=== PATIENT | male | born 1995 | race Caucasian/White ===

== ENCOUNTER 2020-06-03 11:20 | Outpatient (REF) | payer BC, SELFPAY ==
[2020-06-03 12:20] LABS: MANUAL DIFF FLAG NO
[2020-06-03 12:24] LABS: Basophils Percent Auto 0.7 % (0-2); Eosinophils Absolute Auto 0.3 X10*3/uL (0.0-0.4); Eosinophils Percent Auto 4.1 % (0-4); Hematocrit 44.8 % (42-52); Hemoglobin 15.5 g/dl (14.0-18.0); Imm Gran Abs Auto 0.02 X10*3/uL (0.00-0.03); Imm Gran Pct Auto 0.3 % (0.0-0.4); Lymphocytes Absolute Auto 1.7 X10*3/uL (1.2-4.9); Lymphocytes Percent Auto 27.6 % (20-40); Mean Corpuscular HGB Conc 34.6 g/dl (31.0-36.0); Mean Corpuscular Hemoglobin 29.1 pg (27.0-33.0); Mean Corpuscular Volume 84.1 fL (80-98); Mean Platelet Volume 11.5 fL (9.4-12.4); Monocytes Absolute Auto 0.7 X10*3/uL (0.1-1.2); Monocytes Percent Auto 11.2 % (2-11); Neutrophils Absolute Auto 3.4 X10*3/uL (2.0-8.3); Neutrophils Percent Auto 56.1 % (45-73); Platelet Count 221 X10*3/uL (160-400); Red Blood Count 5.33 X10*6/uL (4.60-5.80); Red Cell Distribution Width 13.2 % (11.0-16.0); White Blood Count 6.1 X10*3/uL (4.8-10.8)
[2020-06-03 13:09] LABS: Thyroid Stimulating Hormone 0.72 uIU/mL (0.32-4.0)
[2020-06-04 13:11] LABS: Transglutaminase IgA 1 U/mL
[2020-06-05 22:47] LABS: Gliadin Deamidated IgA Ab 2 Units; Gliadin Deamidated IgG Ab 1 Units
== END 2020-06-03 11:21 | disposition home or self-care (01) ==
LOC: HO.LAB 11:20
PROVIDERS: PCP Family Medicine; Visit Provider Internal Medicine Gastroenterology
DX: R19.4 Change in bowel habit (principal)
CPT/HCPCS: 36415; 83516; 84443; 85025

== ENCOUNTER 2020-06-14 09:47 | Day surgery (SDC) | payer BC, SELFPAY ==
[2020-06-14 10:01] VITALS: BP 126/88; PULSE 70; RESP 18; TEMP 36.2; O2SAT 97; BMI 39.1
--- NOTE | 2020-06-14 10:45 | P.CONAN_ITS ---
HPI - Anesthesia Eval Consult details Narrative: 24 yo male patient here for colonoscopy [facility] Past Medical History Medical History (Updated 06/14/20 @ 10:47 by Malou Maldonado) Increased BMI No significant medical problems Snoring Family History Family history of problems with anesthesia: No Surgical History Surgical History (Updated 06/14/20 @ 10:52 by Malou Maldonado) H/O fracture History of Problems with Anesthesia: No Social History Social History Smoking Status: Current every day smoker Use of substances other than those prescribed or required for medical reasons: Yes Advance Directives: No Advance Directives Information Provided: Yes Meds Allergies Allergy/AdvReac Type Severity Reaction Status Date / Time No Known Allergies Allergy Verified 06/14/20 09:55 Active Medications: Current Medications Generic Name Dose Route Start Last Admin Trade Name Freq PRN Reason Stop Dose Admin Lactated Ringer's 1,000 mls @ 100 mls/hr 06/14/20 10:45 Lr IVCONT .Q10H [facility] Home Medications Medication Instructions Recorded Confirmed Last Taken Type ibuprofen 400 mg PO Q8H PRN 06/09/20 06/09/20 06/05/20 22:00 History loperamide [Imodium A-D] 2 mg PO Q6H PRN 06/09/20 06/09/20 Unknown History Exam Exam Date and Time: June 14, 2020 1045 Height,Weight and Vital Signs: Height 5 ft 9 in Weight 120.202 kg Last Vital Signs Temp 97.2 F 06/14/20 10:01 Pulse 70 06/14/20 10:01 Resp 18 06/14/20 10:01 BP 126/88 06/14/20 10:01 Pulse Ox 97 06/14/20 10:01 Airway Mallampati Class: III TM Dist: >3cm Neck ROM: Full Heart: RRR Lungs: CTAB Assessment and Plan Assessment Anesthesia Assessment: Anesthesia Plan Discussed and Chart Reviewed Final Anesthetic Review NPO: Yes ASA Class: II Final Preanesthetic Review: No Changes in Pt Med Stat, Meds/Allgs Chart Reviewed, Consent Obtained/Reviewed and Anes Risks/Benef Reviewed Patient Risk: Intermediate Procedure Risk: Low Assessment/Block/Sedation in SS: Assess/Block/Sedation-SS Anesthetic Plan Anesthetic Plan: MAC: Disposition: Standard PACU
--- NOTE | 2020-06-14 10:53 | MHC.SHP ---
Pre-Procedural Eval Section A The patient is an INPATIENT: No Changes since office visit: No Cold of Flu in the past 2 weeks, No New Medical Problems, No Changes in Medication and No Patient answered all questions The History & Physical has been completed within 30 days and I have reviewed it.: Yes Section B Chief Complaint: change in bowel habit Allergies: Allergies Allergy/AdvReac Type Severity Reaction Status Date / Time No Known Allergies Allergy Verified 06/14/20 09:55 Plan I have reviewed the history and physical and performed a pertinent physical examination on my patient. No changes have occurred unless specified.
--- NOTE | 2020-06-14 11:18 | PM.OP ---
Brief Operative Note Date of Service: 06/14/20 Pre-op diagnosis: chnge in bowels Post-op diagnosis: same (normal) Procedure: colonoscopy Surgeon: Navi Rocha Estimated blood loss (mL): 2 Pathology: other (sigmoid biopsies) Condition: stable Disposition: PACU
[2020-06-14 11:19] VITALS: BP 99/51; PULSE 56; RESP 14; TEMP 36.9; O2SAT 96
[2020-06-14 11:34] VITALS: BP 117/62; PULSE 56; RESP 16; TEMP 36.9; O2SAT 98
--- NOTE | 2020-06-14 13:14 | OP_ITS ---
SURGEON: Navi Rocha MD INDICATIONS: Diarrhea and change in bowel habits. PREOPERATIVE DIAGNOSIS: POSTOPERATIVE DIAGNOSIS: PROCEDURE PERFORMED: Colonoscopy to the terminal ileum with biopsy. ESTIMATED BLOOD LOSS: COMPLICATIONS: ANESTHESIA: ASSISTANTS: SPECIMENS: MEDICATIONS: Monitored anesthesia care. DESCRIPTION OF PROCEDURE: History and physical performed. The risks and benefits of the procedure were explained to the patient. Informed consent was obtained. The patient was placed in the left lateral decubitus position. A digital rectal exam was performed and was found to be normal. The Olympus pediatric video colonoscope was introduced into the rectum and advanced to the cecum without difficulty. The cecum was identified by transillumination, palpation, and identification of ileocecal valve. Examination was performed and the scope was removed. He tolerated procedure well and was returned to recovery area in stable condition. FINDINGS: The terminal ileum was examined and appeared normal. The visualized colonic mucosa was normal. The quality of the prep was good. There was no evidence of colitis. Random sigmoid biopsies were obtained. Retroflexed examination was normal. IMPRESSION: Normal colonoscopy. RECOMMENDATIONS: 1. Follow up the biopsy results. 2. Screening colonoscopy is recommended every 10 years, beginning by age 50, in average risk individuals. MD HAILEY Montanez/ASHANTI / [id number] MTDD
== END 2020-06-14 11:55 | disposition home or self-care (01) ==
PROVIDERS: PCP Family Medicine; Visit Provider Internal Medicine Gastroenterology
PROC: 0DJD8ZZ Inspection of Lower Intestinal Tract, Via Natural or Artificial Opening Endoscopic (ICD-10-PCS; CPT 45378; principal; 2020-06-14 10:50)
DX: R19.4 Change in bowel habit (principal); R19.7 Diarrhea, unspecified; R06.83 Snoring; Z79.899 Other long term (current) drug therapy; F17.200 Nicotine dependence, unspecified, uncomplicated
CPT/HCPCS: 45380; 88305